=== PATIENT | male | born 1980 | race Caucasian/White ===

== ENCOUNTER 2023-06-14 14:52 | Inpatient (IN) | payer MEDICAID, SELFPAY ==
[2023-06-14] VITALS (7 sets, daily range): BP systolic 112–155; BP diastolic 81–95; PULSE 66–89; RESP 13–20; TEMP 36.3–36.9; O2SAT 96–100; BMI 22.8
--- NOTE | ~2023-06-14 | US_ITS ---
Limited Abdominal Sonogram: Real-time sonographic imaging of the right upper quadrant was performed. Clinical History: Abnormal LFTs, alcoholism Findings: The liver appears echogenic, with no evidence of mass lesion or bile duct dilatation. Main portal vein demonstrates normal direction of flow. The gallbladder is well distended, and appears no rmal with no evidence of gallstone or wall thickening. The common bile duct measures 5 mm. The visua lized pancreas, aorta, and IVC are unremarkable. Impression: Diffuse fatty infiltration of liver. Reviewed, dictated and finalized at location M. Impression: Diffuse fatty infiltration of liver.
--- NOTE | 2023-06-14 16:00 | ED.ALCOHOL ---
HPI - Alcohol General Chief Complaint: Alcohol Stated Complaint: Vomiting, Withdraw from Alcohol Time Seen by Provider: 06/14/23 15:55 History of Present Illness HPI narrative: Patient is a 42-year-old male with history of EtOH abuse, history of withdrawal seizure here with alcohol withdrawal. Patient states that he typically drinks approximately a 1 bottle of whiskey a day, last drink was last night. He states he woke up this morning he began feeling very nauseous. He has now vomited numerous times since waking up. He endorses significant nausea, tremor and mild abdominal pain. He does note history of alcohol withdrawal in the past, was last admitted approximately [address] [facility]. He denies any prior abdominal surgeries. He denies any other history. He denies any other medical history. Related Data Allergies Allergy/AdvReac Type Severity Reaction Status Date / Time No Known Allergies Allergy Verified 06/14/23 15:33 Review of Systems Review of Systems: CONSTITUTIONAL: Denies fever, chills, or sweats. EYES: Denies visual changes, redness, or discharge. ENT: Denies rhinorrhea, congestion, sore throat, or otalgia. CARDIOVASCULAR: Denies chest pain, palpitations, or edema. RESPIRATORY: Denies cough or dyspnea. GASTROINTESTINAL: abdominal pain, nausea, vomiting GENITOURINARY: Denies dysuria or hematuria. SKIN: Denies rash or itching. MUSCULOSKELETAL: Denies back pain, joint pain, or myalgia. NEUROLOGIC: Denies headache, numbness, or weakness. Tremor PSYCHIATRIC: Denies anxiety or depression. Exam Narrative: GENERAL: Ill appearing, well-nourished, and actively vomiting. HEAD: Normocephalic, atraumatic. EYES: PERRLA and EOMI. ENT: Nares clear, no rhinorrhea or epistaxis. Mucous membranes moist. NECK: Supple. CHEST: Clear to auscultation. No respiratory distress. HEART: Regular rate and rhythm. No murmur heard. Normal peripheral pulses. ABDOMEN: Soft, nontender, nondistended, normal active bowel sounds. EXTREMITIES: Normal range of motion. No edema. SKIN: Warm, dry, no rash. NEURO: No focal deficits. Alert and oriented x3. Tongue fasciculations present, faint upper extremity tremor PSYCH: Normal mood and affect. Course Course Emergency Course: Chart review performed, no prior visits here in the emergency department. No documented history. Mild hypertension otherwise vitals within normal limits in triage. Patient seen evaluated, actively vomiting, appears to be in mild to moderate alcohol withdrawal. Differentials include pancreatitis, alcohol withdrawal, alcoholic hepatitis. Will order benzodiazepines, basic lab work. His abdomen is soft however given abdominal pain and vomiting will do lipase and abdominal pain workup. Anticipate admission. Electrolytes within normal limits, LFTs consistent with ETOH abuse, lipase normal, ETOH is 239. No leukocytosis, low suspicion for intraabdominal infection. Will re-evaluate. Anticipate admission. Spoke with ICU, Dr. Vargas regarding case, believes at this point he should be okay for IMU. Should he have a seizure or require Precedex, he would then be appropriate for the ICU. Will speak with hospitalist. Teresa of Hospitalist accepted patient for admission. Vital Signs Vital signs: Vital Signs Temperature 98.4 F 06/14/23 15:20 Pulse Rate 84 06/14/23 15:20 Respiratory Rate 13 06/14/23 15:20 Blood Pressure 145/88 H 06/14/23 15:20 Pulse Oximetry 100 06/14/23 15:20 Oxygen Delivery Room Air 06/14/23 15:20 Temperature 98.4 F 06/14/23 15:20 Pulse Rate 75 06/14/23 18:05 Respiratory Rate 20 06/14/23 18:05 Blood Pressure 131/90 06/14/23 18:05 Pulse Oximetry 99 06/14/23 18:05 Oxygen Delivery Room Air 06/14/23 15:20 MDM - Alcohol Lab Data 06/14/23 16:17 06/14/23 16:16 Labs: Lab Results 06/14/23 06/14/23 06/14/23 Range/Units 16:16 16:17 17:07 WBC 7.8 (4.5-10.0) K/mm3 RBC
[2023-06-14] MEDS: ONDANSETRON INJ 4 MG/2 ML VIAL IV PUSH ×3 (16:16→20:19)
[2023-06-14] MEDS: LORazepam INJ (*CRX) 2 MG/ML VIAL 4 MG IV PUSH ×2 (16:16→17:12)
[2023-06-14 16:28] LABS: Basophils Absolute Auto 0.1 K/mm3 (0.0-0.1); Basophils Percent Auto 1.2 % (0.2-1.2); Hematocrit 44.3 % (42.0-52.0); Hemoglobin 15.1 g/dL (14.0-18.0); Immature Granulocyte Absolute 0.02 K/mm3 (0.00-0.031); Immature Granulocyte Percent A 0.3 % (0-0.5); Mean Corpuscular HGB Conc 34.1 g/dl (32-36); Mean Corpuscular Hemoglobin 32.1 pg (26-34); Mean Corpuscular Volume 94.3 fl (80-100); Mean Platelet Volume 9.3 fl (7.4-10.4); Monocytes Absolute Auto 0.4 K/mm3 (0.1-0.6); Monocytes Percent Auto 4.6 % (2.6-8.5); Neutrophils Absolute Auto 6.6 K/mm3 (1.3-6.7); Neutrophils Percent Auto 84.9 % (45.5-73.1); Platelet Count Result 269 k/mm3 (150-375); Red Cell Distribution Width 12.8 % (11.5-14.5); White Blood Count 7.8 K/mm3 (4.5-10.0)
[2023-06-14 16:44] LABS: Alanine Aminotransferase 92 U/L (6-50); Albumin Level 4.8 g/dL (3.5-5.1); Alkaline Phosphatase 89 U/L (38-126); Anion Gap 14 mmol/L (8-16); Aspartate Amino Transferase 149 U/L (17-59); Bilirubin,Total 1.3 mg/dL (0.2-1.3); Blood Urea Nitrogen 11 mg/dL (9-20); Calcium 9.5 mg/dL (8.4-10.2); Carbon Dioxide 22 mmol/L (22-30); Chloride 103 mmol/L (98-107); Estimated CRCL calculation 89 ml/min; Estimated Glomerular Filt Rate > 60; Glucose 119 mg/dL (65-110); Lipase 79 U/L (23-300); Potassium 3.9 mmol/L (3.4-5.0); Sodium 139 mmol/L (137-145)
[2023-06-14 16:45] LABS: Ethanol 239 mg/dL (<10)
[2023-06-14] MEDS: PANTOPRAZOLE SODIUM IV 40 MG VIAL IV PUSH (18:08)
[2023-06-14] MEDS: MORPHINE SULFATE (*CRX) 4 MG/ML INJ IV PUSH (18:08)
[2023-06-14 18:34] LABS: Glucose Point of Care 120 mg/dl (65-105)
--- NOTE | 2023-06-14 19:34 | PC.NURSE ---
Assumed care of patient at this time. Patient in room resting on stretcher with family member at bedside. Patient refusing to wear monitoring equipment and leads. No acute distress noted.
--- NOTE | 2023-06-14 20:14 | PM.IMHP ---
H&P: HPI History of Present Illness Date/Time: 06/14/23 20:14 Chief Complaint: Alcohol withdrawal Narrative: This is a 42-year-old male patient who has a history of anxiety and a history of alcohol abuse. He also admits to using marijuana daily. The patient drinks 750 mL of whiskey a day. The patient last drank last night. The patient was at his sister's house when he became very nauseated. The patient vomited multiple times. The patient has been to alcohol rehab program at least 4 other times. The patient was admitted to [facility] approximately 1 month ago for alcohol withdrawals. The patient stated that he was hearing things and seeing things city that were not actually in existence. His glucose was 119, 120 in the 99. AST is 149 and ALT is 92. Ethyl alcohol is 239. The patient was given Ativan, Zofran, Protonix, morphine, and Reglan. The patient is awake and talking to the staff. The patient is being admitted to observation status on the date of service 06/14/2023. Review of Systems Review of Systems: All systems reviewed & are unremarkable except as noted in HPI and below Constitutional: Constitutional: Reports as per HPI and Reports no additional constitutional complaints Eyes: Eyes: Reports as per HPI and Reports no additional eye complaints ENT: Reports system reviewed and no additional complaints, except as documented and Reports Normal hearing present Cardiovascular: Cardiovascular: Reports no additional cardiovascular complaints Respiratory: Respiratory: Reports no additional respiratory complaints and Reports no additional respiratory complaints Gastrointestinal: Gastrointestinal: Reports as per HPI and Reports no additional gastrointestinal complaints Musculoskeletal: Musculoskeletal: Reports no additional musculoskeletal complaints Integumentary/Breasts: Skin/Breast: Reports system reviewed and no additional complaints, except as docu and Reports as per HPI Neurologic: Reports system reviewed and no additional complaints, except as documented, Reports as per HPI and Reports Normal hearing present Psychiatric: Psychiatric: Reports no additional psychiatric complaints and Reports as per HPI Endocrine: Endocrine: Reports no additional endocrine complaints Hematologic/Lymphatic: Hematologic/Lymphatic: Reports no additional hematologic/lymphatic complaints Allergic/Immunologic: Allergic/Immunologic: Reports no additional allergic/immunologic complaints [facility] Past Medical History Medical History Alcohol withdrawal syndrome Anxiety Marijuana use Surgical History Surgical History (Updated 06/14/23 @ 21:49 by Teresa Muller NP) H/O wisdom tooth extraction Family History Family History Father Alcohol abuse Social History Social History (Updated 06/14/23 @ 21:50 by Teresa Muller NP) Social History: The patient is single and lives alone. 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 The patient drinks 750 mL of bourbon a day. Lifelong nonsmoker. He does not have a durable power commercial attorney for healthcare. The patient has gotten a DUI in the past but currently has this represents. Code status full code Smoking status: Never smoker Alcohol intake: current Drinks per week: 7 Substance use: current Substance use type: marijuana Lack of Transportation: No Lack of Food: Never True Current Housing: I Have Housing Concerned About Future Housing: No Difficulty Paying Gas/Electric Bills: YES Difficulty Paying for Meds: No Currently Unemployed: YES Education: High School Diploma/GED Difficulty w/ Childcare or Family Care: No Spiritual care concerns: No Meds Home Medications and Allergies Home Medications Medication Instructions Recorded Confirmed Type ondansetron 4 mg disintegrating 4 mg PO Q8H PRN Nausea And Vomiting 06/14/23 06/14/23 History tablet Allergies Allergy/AdvRea
[2023-06-14 21:39] LABS: Glucose Point of Care 99 mg/dl (65-105)
--- NOTE | 2023-06-14 21:42 | PC.NURSE ---
This patient, Amado Morrow, was admitted to IMU Room 207-01 on 06/13/23 at 2125 . Patient/family oriented to hospital policies and general routines including ID bracelet, bed and alarms, visiting hours, pain management, procedures, bathroom and other care routines, personal items, smoking policy, room service/diet, and visiting hours. Information on how to activate the Rapid Response Team has been discussed. Patient/Family are encouraged to report perceived risks to care and to ask questions if they do not understand what they are told or what they should do.
[2023-06-14] MEDS: METOCLOPRAMIDE HCL INJ 10 MG/2 ML VIAL IV PUSH (22:19)
[2023-06-14] MEDS: chlordiazePOXIDE (*CRX) 10 MG CAPSULE PO (22:50)
[2023-06-14] MEDS: METOCLOPRAMIDE HCL INJ 10 MG/2 ML VIAL 5 MG IV PUSH (22:58)
[2023-06-14] MEDS: HALOPERIDOL LACTATE 5 MG/ML VIAL 2 MG IV PUSH (22:59)
--- NOTE | 2023-06-14 23:04 | PC.NURSE ---
Have had several discussions with patient that he needs to wear heart monitor at all times and that he can not take a shower due to receiving multiple doses of Ativan and falling in the shower twice today( reported by Camacho RN). Need to wear monitor was reiterated after patient removed it.
[2023-06-15] VITALS (15 sets, daily range): BP systolic 140–164; BP diastolic 79–97; PULSE 54–89; RESP 12–20; TEMP 36.4–36.8; O2SAT 96–100
[2023-06-15] MEDS: LORazepam INJ (*CRX) 2 MG/ML VIAL IV PUSH ×2 (00:28→08:10)
[2023-06-15 05:12] LABS: Basophils Absolute Auto 0.1 K/mm3 (0.0-0.1); Basophils Percent Auto 0.7 % (0.2-1.2); Hematocrit 40.6 % (42.0-52.0); Hemoglobin 13.7 g/dL (14.0-18.0); Immature Granulocyte Absolute 0.01 K/mm3 (0.00-0.031); Immature Granulocyte Percent A 0.1 % (0-0.5); Lymphocytes Absolute Auto 0.91 K/mm3 (0.9-3.2); Lymphocytes Percent Auto 13.2 % (18.3-44.2); Mean Corpuscular HGB Conc 33.7 g/dl (32-36); Mean Corpuscular Hemoglobin 31.7 pg (26-34); Mean Platelet Volume 9.1 fl (7.4-10.4); Monocytes Absolute Auto 0.6 K/mm3 (0.1-0.6); Neutrophils Absolute Auto 5.3 K/mm3 (1.3-6.7); Platelet Count Result 218 k/mm3 (150-375); Red Blood Count 4.32 M/mm3 (4.6-6.20); Red Cell Distribution Width 12.8 % (11.5-14.5); White Blood Count 6.9 K/mm3 (4.5-10.0)
[2023-06-15 05:25] LABS: Ammonia < 9 umol/L (9-30)
[2023-06-15 05:26] LABS: Anion Gap 5 mmol/L (8-16); Blood Urea Nitrogen 15 mg/dL (9-20); Calcium 8.6 mg/dL (8.4-10.2); Carbon Dioxide 26 mmol/L (22-30); Chloride 102 mmol/L (98-107); Estimated CRCL calculation 118 ml/min; Estimated Glomerular Filt Rate > 60; Glucose 87 mg/dL (65-110); Lactic Acid Reflex 0.9 mmol/L (0.7-2.0); Lipase 60 U/L (23-300); Magnesium 2.4 mg/dL (1.6-2.3); Potassium 3.9 mmol/L (3.4-5.0); Sodium 133 mmol/L (137-145)
[2023-06-15] MEDS: chlordiazePOXIDE (*CRX) 10 MG CAPSULE PO ×4 (06:18→23:20)
[2023-06-15] MEDS: METOCLOPRAMIDE HCL INJ 10 MG/2 ML VIAL 5 MG IV PUSH ×4 (06:18→23:20)
[2023-06-15] MEDS: FAMOTIDINE 20 MG/2 ML VIAL IV PUSH ×2 (08:03→20:32)
[2023-06-15] MEDS: FOLIC ACID 1 MG TABLET PO (08:03)
[2023-06-15] MEDS: THIAMINE HCL 100 MG TABLET PO (08:04)
[2023-06-15] MEDS: ONDANSETRON INJ 4 MG/2 ML VIAL IV PUSH (08:11)
--- NOTE | 2023-06-15 09:32 | PM.IMPN ---
Progress Note: A&P Assessment and Plan (1) Alcohol withdrawal syndrome: Qualifiers: Complication of substance-induced condition: uncomplicated Qualified Code(s): F10.930 - Alcohol use, unspecified with withdrawal, uncomplicated Code(s): F10.939 - Alcohol use, unspecified with withdrawal, unspecified Status: Acute Assessment and Plan: Patient here for alcohol withdrawal. Alcohol level on admission was 239. He received banana bag. Now on thiamine and folate. He is on scheduled Librium. Ciwa score mostly 3-9 range with occasional higher values. Lorazepam IV available for high CIWA scores and he has received 2 doses. Haldol available for delirium and only had one dose yesterday. Reglan scheduled for the nausea. Appears stable. Start diet. Spoke with CC and she has given the patient information about alcohol rehab. Continue with CIWA protocol. (2) Marijuana use: Code(s): F12.90 - Cannabis use, unspecified, uncomplicated Status: Acute Assessment and Plan: The patient uses marijuana every day. (3) Anxiety: Code(s): F41.9 - Anxiety disorder, unspecified Status: Acute Assessment and Plan: The patient stated he is on hydroxyzine at home. He has p.r.n. Ativan here and on scheduled Librium. Monitor. (4) Elevated LFTs: Code(s): R79.89 - Other specified abnormal findings of blood chemistry Status: Acute Assessment and Plan: AST/ALT elevated on admission. [place] related to alcoholic hepatitis. Follow. Check hepatitis panel. Check RUQ US. Subjective Date/time seen: 06/15/23 09:32 Interval history: 42yo male with hx of alcoholism and anxiety here for alcohol w/d. Slept poorly last night. So complains of nausea no vomiting. Currently NPO. Some no diarrhea. No tremors. Exam Narrative: AF 98.3 140/79 89 16 98% ra Gen - NARD Chest - CTA bilaterally, nml RR CV - RRR S1/S2. Tele showing no significant dysrhythmias Abd - Soft, NT/ND, Positive BS Ext - No pedal edema Psych - Nml affect; unhappy mood. no tremors or diaphoresis Skin - Warm and dry Objective Data Vital Signs Vital Signs: Vital Signs - 24 hr 06/14/23 15:20 06/14/23 18:05 06/14/23 20:21 Temperature 98.4 F Pulse Rate 84 75 66 Respiratory Rate 13 20 17 Blood Pressure 145/88 H 131/90 112/81 Pulse Oximetry 100 99 99 Oxygen Delivery Room Air 06/14/23 21:37 06/14/23 21:34 06/14/23 23:40 Temperature 97.6 F 97.3 F L Pulse Rate 79 79 89 Respiratory Rate 16 16 20 Blood Pressure 155/89 H 148/95 H Pulse Oximetry 96 96 100 Oxygen Delivery Room Air 06/14/23 22:00 06/15/23 00:02 06/14/23 22:00 Temperature Pulse Rate 80 Respiratory Rate Blood Pressure Pulse Oximetry 96 96 Oxygen Delivery Room Air Room Air 06/15/23 00:00 06/15/23 02:00 06/15/23 04:00 Temperature 97.7 F Pulse Rate 88 79 72 Respiratory Rate 18 Blood Pressure 142/92 H Pulse Oximetry 100 Oxygen Delivery 06/15/23 04:00 06/15/23 04:00 06/15/23 06:00 Temperature Pulse Rate 80 74 Respiratory Rate Blood Pressure Pulse Oximetry 100 Oxygen Delivery Room Air 06/15/23 08:00 06/15/23 08:00 Temperature 98.3 F Pulse Rate 89 Respiratory Rate 16 Blood Pressure 140/79 Pulse Oximetry 100 98 Oxygen Delivery Room Air Intake/Output Intake/Output: Intake & Output 06/12/23 06/13/23 06/14/23 06/15/23 23:59 23:59 23:59 23:59 Intake Total 472 1603.2 Output Total 350 600 Balance 122 1003.2 Meds/Results Medications: Active Medications Generic Name Dose Route Start Last Admin Trade Name Freq PRN Reason Stop Dose Admin Chlordiazepoxide HCl 10 mg 06/15/23 00:00 06/15/23 06:18 Chlordiazepoxide (*Crx) 10 Mg Capsule PO 10 mg Q6HR ELLIOT Administration Famotidine 20 mg 06/15/23 09:00 06/15/23 08:03 Famotidine 20 Mg/2 Ml Vial IV PUSH 20 mg Q12HR ELLIOT Administration Folic Acid 1 mg 06/15/23 09:00
[2023-06-15 12:15] LABS: Glucose Point of Care 88 mg/dl (65-105)
[2023-06-15 23:29] LABS: Glucose Point of Care 86 mg/dl (65-105)
[2023-06-16] VITALS (15 sets, daily range): BP systolic 131–166; BP diastolic 82–92; PULSE 52–85; RESP 14–20; TEMP 36.2–36.9; O2SAT 97–100
[2023-06-16] MEDS: chlordiazePOXIDE (*CRX) 10 MG CAPSULE PO ×3 (05:19→17:49)
[2023-06-16] MEDS: METOCLOPRAMIDE HCL INJ 10 MG/2 ML VIAL 5 MG IV PUSH ×3 (05:19→17:49)
[2023-06-16 05:22] LABS: Alanine Aminotransferase 65 U/L (6-50); Alkaline Phosphatase 65 U/L (38-126); Anion Gap 5 mmol/L (8-16); Aspartate Amino Transferase 67 U/L (17-59); Bilirubin,Total 3.1 mg/dL (0.2-1.3); Blood Urea Nitrogen 14 mg/dL (9-20); Calcium 9.1 mg/dL (8.4-10.2); Carbon Dioxide 27 mmol/L (22-30); Chloride 97 mmol/L (98-107); Estimated CRCL calculation 118 ml/min; Estimated Glomerular Filt Rate > 60; Glucose 94 mg/dL (65-110); Potassium 3.5 mmol/L (3.4-5.0); Sodium 129 mmol/L (137-145)
[2023-06-16 06:00] LABS: Hepatitis B Surface Antigen Negative (Negative)
[2023-06-16 06:06] LABS: HAV RESULT Negative (Negative); Hepatitis B Core IgM Result Negative (Negative)
[2023-06-16 06:17] LABS: Hepatitis C Virus Antibody Negative (Negative)
[2023-06-16] MEDS: ONDANSETRON INJ 4 MG/2 ML VIAL IV PUSH ×2 (08:41→16:48)
[2023-06-16] MEDS: FAMOTIDINE 20 MG/2 ML VIAL IV PUSH ×2 (08:41→21:33)
[2023-06-16] MEDS: THIAMINE HCL 100 MG TABLET PO (08:41)
[2023-06-16] MEDS: FOLIC ACID 1 MG TABLET PO (08:41)
[2023-06-16 11:22] LABS: Glucose Point of Care 79 mg/dl (65-105)
--- NOTE | 2023-06-16 13:47 | PM.IMPN ---
Progress Note: A&P Assessment and Plan (1) Alcohol withdrawal syndrome: Qualifiers: Complication of substance-induced condition: uncomplicated Qualified Code(s): F10.930 - Alcohol use, unspecified with withdrawal, uncomplicated Code(s): F10.939 - Alcohol use, unspecified with withdrawal, unspecified Status: Acute Assessment and Plan: Patient here for alcohol withdrawal. Alcohol level on admission was 239. He received banana bag. Now on thiamine and folate. He is on scheduled Librium. Ciwa score mostly 3-9 range with occasional higher values. Lorazepam IV available for high CIWA scores and he has received 2 doses. Haldol available for delirium and only had one dose yesterday. Reglan scheduled for the nausea. Appears stable. Start diet. Spoke with CC and she has given the patient information about alcohol rehab. Continue with CIWA protocol. (2) Marijuana use: Code(s): F12.90 - Cannabis use, unspecified, uncomplicated Status: Acute Assessment and Plan: The patient uses marijuana every day. (3) Anxiety: Code(s): F41.9 - Anxiety disorder, unspecified Status: Acute Assessment and Plan: The patient stated he is on hydroxyzine at home. He has p.r.n. Ativan here and on scheduled Librium. Monitor. (4) Elevated LFTs: Code(s): R79.89 - Other specified abnormal findings of blood chemistry Status: Acute Assessment and Plan: AST/ALT elevated on admission. [place] related to alcoholic hepatitis. Follow. Check hepatitis panel. Check RUQ US. Subjective Date/time seen: 06/16/23 13:47 Interval history: no complaints Exam Narrative: AF 98.3 140/79 89 16 98% ra Gen - NARD Chest - CTA bilaterally, nml RR CV - RRR S1/S2. Tele showing no significant dysrhythmias Abd - Soft, NT/ND, Positive BS Ext - No pedal edema Psych - Nml affect; unhappy mood. no tremors or diaphoresis Skin - Warm and dry Objective Data Vital Signs Vital Signs: Vital Signs - 24 hr 06/15/23 14:00 06/15/23 16:00 06/15/23 16:00 Temperature Pulse Rate 62 76 Respiratory Rate Blood Pressure Pulse Oximetry 100 Oxygen Delivery Room Air 06/15/23 16:00 06/15/23 18:00 06/15/23 20:00 Temperature 97.7 F 97.6 F Pulse Rate 64 55 L 64 Respiratory Rate 12 20 Blood Pressure 156/97 H 164/97 H Pulse Oximetry 99 100 Oxygen Delivery 06/15/23 20:00 06/15/23 20:00 06/15/23 22:00 Temperature Pulse Rate 56 L 54 L Respiratory Rate Blood Pressure Pulse Oximetry 100 Oxygen Delivery Room Air 06/15/23 23:40 06/16/23 00:00 06/16/23 00:00 Temperature 97.9 F Pulse Rate 63 53 L Respiratory Rate 18 Blood Pressure 157/95 H Pulse Oximetry 100 100 Oxygen Delivery Room Air 06/16/23 02:00 06/16/23 04:00 06/16/23 04:00 Temperature Pulse Rate 57 L 53 L Respiratory Rate Blood Pressure Pulse Oximetry 100 Oxygen Delivery Room Air 06/16/23 04:00 06/15/23 22:54 06/16/23 06:00 Temperature 97.9 F Pulse Rate 54 L 80 Respiratory Rate 20 Blood Pressure 151/83 H Pulse Oximetry 100 100 Oxygen Delivery Room Air 06/16/23 07:45 06/16/23 08:00 06/16/23 08:00 Temperature 98.5 F Pulse Rate 56 L 65 Respiratory Rate 16 Blood Pressure 147/92 H 147/92 H Pulse Oximetry 97 Oxygen Delivery 06/16/23 08:00 06/16/23 10:00 06/16/23 11:33 Temperature 97.7 F Pulse Rate 85 55 L Respiratory Rate 14 Blood Pressure 166/89 H Pulse Oximetry 97 100 Oxygen Delivery Room Air 06/16/23 12:00 06/16/23 12:00 Temperature Pulse Rate 67 Respiratory Rate Blood Pressure Pulse Oximetry 98 Oxygen Delivery Room Air Intake/Output Intake/Output: Intake & Output 06/13/23 06/14/23 06/15/23 06/16/23 23:59 23:59 23:59 23:59 Intake Total 472 2393.2 840 Output Total 350 1800 550 Balance 122 593.2 290 Meds/Results Medications: Active Medications Generic Name Dos
[2023-06-16 17:39] LABS: Glucose Point of Care 115 mg/dl (65-105)
[2023-06-17] VITALS (9 sets, daily range): BP systolic 138–140; BP diastolic 84–89; PULSE 49–90; RESP 14–20; TEMP 36.5–36.7; O2SAT 99–100
[2023-06-17] MEDS: METOCLOPRAMIDE HCL INJ 10 MG/2 ML VIAL 5 MG IV PUSH ×3 (00:27→12:30)
[2023-06-17] MEDS: chlordiazePOXIDE (*CRX) 10 MG CAPSULE PO ×3 (00:27→12:30)
[2023-06-17 05:57] LABS: Anion Gap 6 mmol/L (8-16); Blood Urea Nitrogen 11 mg/dL (9-20); Calcium 9.1 mg/dL (8.4-10.2); Carbon Dioxide 30 mmol/L (22-30); Chloride 94 mmol/L (98-107); Estimated CRCL calculation 118 ml/min; Estimated Glomerular Filt Rate > 60; Glucose 86 mg/dL (65-110); Potassium 3.5 mmol/L (3.4-5.0); Sodium 130 mmol/L (137-145)
[2023-06-17 07:38] LABS: Glucose Point of Care 101 mg/dl (65-105)
[2023-06-17 08:26] LABS: Basophils Absolute Auto 0.1 K/mm3 (0.0-0.1); Eosinophils Absolute Auto 0.1 K/mm3 (0-0.3); Eosinophils Percent Auto 1.5 % (0-4.4); Hematocrit 44.3 % (42.0-52.0); Hemoglobin 15.1 g/dL (14.0-18.0); Immature Granulocyte Absolute 0.02 K/mm3 (0.00-0.031); Immature Granulocyte Percent A 0.3 % (0-0.5); Lymphocytes Absolute Auto 1.54 K/mm3 (0.9-3.2); Lymphocytes Percent Auto 22.6 % (18.3-44.2); Mean Corpuscular HGB Conc 34.1 g/dl (32-36); Mean Corpuscular Hemoglobin 32.1 pg (26-34); Mean Corpuscular Volume 94.1 fl (80-100); Mean Platelet Volume 10.1 fl (7.4-10.4); Monocytes Absolute Auto 0.8 K/mm3 (0.1-0.6); Monocytes Percent Auto 11.3 % (2.6-8.5); Neutrophils Absolute Auto 4.3 K/mm3 (1.3-6.7); Neutrophils Percent Auto 63.3 % (45.5-73.1); Platelet Count Result 195 k/mm3 (150-375); Red Blood Count 4.71 M/mm3 (4.6-6.20); Red Cell Distribution Width 11.8 % (11.5-14.5); White Blood Count 6.8 K/mm3 (4.5-10.0)
[2023-06-17] MEDS: FOLIC ACID 1 MG TABLET PO (08:53)
[2023-06-17] MEDS: THIAMINE HCL 100 MG TABLET PO (08:53)
[2023-06-17] MEDS: FAMOTIDINE 20 MG/2 ML VIAL IV PUSH (08:53)
[2023-06-17 11:22] LABS: Glucose Point of Care 79 mg/dl (65-105)
--- NOTE | 2023-06-17 11:23 | PM.IMPN ---
Progress Note: A&P Assessment and Plan (1) Alcohol withdrawal syndrome: Qualifiers: Complication of substance-induced condition: uncomplicated Qualified Code(s): F10.930 - Alcohol use, unspecified with withdrawal, uncomplicated Code(s): F10.939 - Alcohol use, unspecified with withdrawal, unspecified Status: Acute Assessment and Plan: Patient here for alcohol withdrawal. Alcohol level on admission was 239. He received banana bag. Now on thiamine and folate. He is on scheduled Librium. Ciwa score mostly 3-9 range with occasional higher values. Lorazepam IV available for high CIWA scores and he has received 2 doses. Haldol available for delirium and only had one dose yesterday. Reglan scheduled for the nausea. Appears stable. Start diet. Spoke with CC and she has given the patient information about alcohol rehab. Continue with CIWA protocol. (2) Marijuana use: Code(s): F12.90 - Cannabis use, unspecified, uncomplicated Status: Acute Assessment and Plan: The patient uses marijuana every day. (3) Anxiety: Code(s): F41.9 - Anxiety disorder, unspecified Status: Acute Assessment and Plan: The patient stated he is on hydroxyzine at home. He has p.r.n. Ativan here and on scheduled Librium. Monitor. (4) Elevated LFTs: Code(s): R79.89 - Other specified abnormal findings of blood chemistry Status: Acute Assessment and Plan: AST/ALT elevated on admission. [place] related to alcoholic hepatitis. Follow. Check hepatitis panel. Check RUQ US. Subjective Date/time seen: 06/17/23 11:24 Interval history: No complaints Exam Narrative: AF 98.3 140/79 89 16 98% ra Gen - NARD Chest - CTA bilaterally, nml RR CV - RRR S1/S2. Tele showing no significant dysrhythmias Abd - Soft, NT/ND, Positive BS Ext - No pedal edema Psych - Nml affect; unhappy mood. no tremors or diaphoresis Skin - Warm and dry Objective Data Vital Signs Vital Signs: Vital Signs - 24 hr 06/16/23 11:33 06/16/23 12:00 06/16/23 12:00 Temperature 97.7 F Pulse Rate 55 L 67 Respiratory Rate 14 Blood Pressure 166/89 H Pulse Oximetry 100 98 Oxygen Delivery Room Air 06/16/23 14:00 06/16/23 16:00 06/16/23 16:00 Temperature 98 F Pulse Rate 74 54 L 72 Respiratory Rate 14 Blood Pressure 165/89 H Pulse Oximetry 98 Oxygen Delivery 06/16/23 16:00 06/16/23 18:00 06/16/23 20:00 Temperature 97.2 F L Pulse Rate 54 L 58 L Respiratory Rate 18 Blood Pressure 131/82 Pulse Oximetry 99 100 Oxygen Delivery Room Air 06/16/23 23:07 06/16/23 20:00 06/16/23 20:00 Temperature 98 F Pulse Rate 52 L 68 Respiratory Rate 20 Blood Pressure 135/83 Pulse Oximetry 100 100 Oxygen Delivery Room Air 06/16/23 22:00 06/17/23 00:00 06/17/23 00:00 Temperature Pulse Rate 54 L 68 Respiratory Rate Blood Pressure Pulse Oximetry 100 Oxygen Delivery Room Air 06/17/23 02:00 06/17/23 04:00 06/17/23 04:00 Temperature 98 F Pulse Rate 54 L 56 L 49 L Respiratory Rate 20 Blood Pressure 140/84 Pulse Oximetry 99 Oxygen Delivery 06/17/23 04:00 06/17/23 06:00 06/17/23 07:51 Temperature 97.7 F Pulse Rate 63 53 L Respiratory Rate 14 Blood Pressure 139/89 Pulse Oximetry 99 100 Oxygen Delivery Room Air 06/17/23 08:00 06/17/23 08:00 Temperature Pulse Rate 79 Respiratory Rate Blood Pressure Pulse Oximetry 100 Oxygen Delivery Room Air Intake/Output Intake/Output: Intake & Output 06/14/23 06/15/23 06/16/23 06/17/23 23:59 23:59 23:59 23:59 Intake Total 472 2393.2 2640 600 Output Total 350 1800 1500 400 Balance 122 593.2 1140 200 Meds/Results Medications: Active Medications Generic Name Dose Route Start Last Admin Trade Name Freq PRN Reason Stop Dose Admin Chlordiazepoxide HCl 10 mg 06/15/23 00:00 06/17/23 05:22 Chlordiazepoxide (*Crx) 10 Mg Capsule PO 10
--- NOTE | 2023-06-17 15:49 | PM.DS ---
DS: Admitting Diagnosis Discharge Date 06/17/23 Admitting Diagnosis etoh withdrawal DS: Discharge Diagnosis Discharge Diagnosis (1) Alcohol withdrawal syndrome: Qualifiers: Complication of substance-induced condition: uncomplicated Qualified Code(s): F10.930 - Alcohol use, unspecified with withdrawal, uncomplicated Code(s): F10.939 - Alcohol use, unspecified with withdrawal, unspecified Status: Acute Assessment and Plan: Patient here for alcohol withdrawal. Alcohol level on admission was 239. He received banana bag. Now on thiamine and folate. He is on scheduled Librium. Ciwa score mostly 3-9 range with occasional higher values. Lorazepam IV available for high CIWA scores and he has received 2 doses. Haldol available for delirium and only had one dose yesterday. Reglan scheduled for the nausea. Appears stable. Start diet. Spoke with CC and she has given the patient information about alcohol rehab. Continue with CIWA protocol. (2) Marijuana use: Code(s): F12.90 - Cannabis use, unspecified, uncomplicated Status: Acute Assessment and Plan: The patient uses marijuana every day. (3) Anxiety: Code(s): F41.9 - Anxiety disorder, unspecified Status: Acute Assessment and Plan: The patient stated he is on hydroxyzine at home. He has p.r.n. Ativan here and on scheduled Librium. Monitor. (4) Elevated LFTs: Code(s): R79.89 - Other specified abnormal findings of blood chemistry Status: Acute Assessment and Plan: AST/ALT elevated on admission. [place] related to alcoholic hepatitis. Follow. Check hepatitis panel. Check RUQ US. DS: Summary Hospital Course Hospital Course: Admitted for etoh withdrawal. Required librium and ativan. Doing well now, wants to go home, has not required any ativan today. Librium on dc - no seizure or dt on this admission. OK to dc home. Time Spent with Patient Time attestation: Total time spent providing and/or coordinating discharge services: Exam Narrative: AF 98.3 140/79 89 16 98% ra Gen - NARD Chest - CTA bilaterally, nml RR CV - RRR S1/S2. Tele showing no significant dysrhythmias Abd - Soft, NT/ND, Positive BS Ext - No pedal edema Psych - Nml affect; unhappy mood. no tremors or diaphoresis Skin - Warm and dry DS: Data Data Completed and Pending Labs on day of discharge: Labs from last 24 hours 06/17/23 06/17/23 06/17/23 11:16 07:31 04:56 WBC RBC Hgb Hct MCV MCH MCHC RDW Plt Count MPV Immature Gran % (Auto) Neut % (Auto) Lymph % (Auto) [place] % (Auto) Eos % (Auto) Baso % (Auto) Lymph # (Auto) [place] # (Auto) Eos # (Auto) Baso # (Auto) Abs Immat Gran (auto) Absolute Neuts (auto) Absolute Nucleated RBC Nucleated RBC % Sodium 130 L Potassium 3.5 Chloride 94 L Carbon Dioxide 30 Anion Gap 6 L BUN 11 Creatinine 0.80 Estim Creat Clear Calc 118 Estimated GFR > 60 Glucose 86 POC Capillary Glucose 79 101 Calcium 9.1 06/17/23 06/16/23 04:53 17:36 WBC 6.8 RBC 4.71 Hgb 15.1 Hct 44.3 MCV 94.1 MCH 32.1 MCHC 34.1 RDW 11.8 Plt Count 195 MPV 10.1 Immature Gran % (Auto) 0.3 Neut % (Auto) 63.3 Lymph % (Auto) 22.6 [place] % (Auto) 11.3 H Eos % (Auto) 1.5 Baso % (Auto) 1.0 Lymph # (Auto) 1.54 [place] # (Auto) 0.8 H Eos # (Auto) 0.1 Baso # (Auto) 0.1 Abs Immat Gran (auto) 0.02 Absolute Neuts (auto) 4.3 Absolute Nucleated RBC 0.0 Nucleated RBC % 0.0 Sodium Potassium Chloride Carbon Dioxide Anion Gap BUN Creatinine Estim Creat Clear Calc Estimated GFR Glucose POC Capillary Glucose 115 H Calcium Discharge Plan Discharge Attending physician on discharge: Jose Cantu Discharging Clinician: JohnKarolina Patient Disposition: Home, Self-Care Activity: as tolerate
== END 2023-06-17 16:08 | disposition home or self-care (01) | DRG 775 ==
LOC: ANHED 18:21 → ANHIMU 20:09
PROVIDERS: Nurse Practitioner; Admitting Provider Internal Medicine; Emergency Provider Student in an Organized Health Care Education/Training Program; Visit Provider Chiropractor
DX: F10.230 Alcohol dependence with withdrawal, uncomplicated (principal); F12.90 Cannabis use, unspecified, uncomplicated; F41.9 Anxiety disorder, unspecified; R79.89 Other specified abnormal findings of blood chemistry; Y90.7 Blood alcohol level of 200-239 mg/100 ml
CPT/HCPCS: 36415; 76705; 80048; 80053; 80074; 80307; 82140; 82948; 83605; 83690; 83735; 84443; 85025; 96365; 96366; 96374; 96375; 96376; 99285; A9270; C9113; G0378; J1630; J2060; J2270; J2405; J2765; J3411; J3475; J7030